=== PATIENT | female | born 1960 | race Caucasian/White ===

== ENCOUNTER → 2017-07-12 | Outpatient (CLI) | payer BC ==
[~2017-07-12] VITALS: Ht 162.6 cm; Wt 54.5 kg
[~2017-07-12] MED LIST: CALCIUM1 CAP PO; ELITE MAGNESIUM1 TAB PO; ESTRACE1 M1 PO; MAPAP500 M2 PO; POTASSIUM20 MEQ PO; VITAMIN C500 MG PO; [UNRECOGNIZED DRUG - OTHER] PO
[2017-07-12 12:53] VITALS: BP 123/66
== END ==
LOC: AMSURD 10:59
DX: R00.0 Tachycardia, unspecified (principal)

== ENCOUNTER → 2018-08-05 | Outpatient (CLI) | payer BC ==
[2017-07-12 12:53] VITALS: BP 123/66
== END ==
LOC: RAD 13:40
DX: E04.1 Nontoxic single thyroid nodule (principal); N39.0 Urinary tract infection, site not specified; R00.2 Palpitations

== ENCOUNTER → 2018-11-18 | Outpatient (CLI) | payer BC ==
[2017-07-12 12:53] VITALS: BP 123/66
== END ==
LOC: RAD 08:55
DX: S69.92XA Unspecified injury of left wrist, hand and finger(s), initial encounter (principal)

== ENCOUNTER → 2020-08-02 | Outpatient (REF) ==
[2017-07-12 12:53] VITALS: BP 123/66
== END ==
LOC: LAB 15:03 → EDSTATUS 15:06 → LAB 15:08
DX: R55 Syncope and collapse (principal)

== ENCOUNTER → 2021-08-06 | Outpatient (CLI) | payer BC | LOC: LAB 10:55 | DX: Z20.822 Contact with and (suspected) exposure to COVID-19 (principal) ==